=== PATIENT | female | born 1960 | race Caucasian/White ===

== ENCOUNTER 2020-08-12 14:48 | Emergency (ER) | payer OTHER ==
[~2020-08-12] VITALS: Ht 157.5 cm; Wt 113.4 kg
[~2020-08-12 14:48] MED LIST: AUGMENTIN 875875 MG PO; DYAZIDE; GLIPIZIDE; IBUPROFEN 600600 M1 PO; LOSARTAN POTAS100 MG PO; NORCO 5-325 TA1 EACH PO; ONGLYZA5 MG PO; VICODIN 5-5001 EACH PO; Vitamin d; ZOCOR; ZOLOFT; [UNRECOGNIZED DRUG - REMARK]
[2020-08-12] MEDS ORDERED: VITAMIN B-121000 MC2 SUBLING (15:08)
[2020-08-12] MEDS ORDERED: IBUPROFEN 600600 M1 PO ×2 (16:47→17:19)
[2020-08-12] MEDS ORDERED: NORCO5 PO ×2 (16:47→17:19)
[2020-08-12 17:30] VITALS: BP 152/88
== END 2020-08-12 17:32 | disposition home or self-care (01) ==
LOC: M.ERS 14:48
DX: S82.64XA Nondisplaced fracture of lateral malleolus of right fibula, initial encounter for closed fracture (principal); S63.591A Other specified sprain of right wrist, initial encounter; I10 Essential (primary) hypertension; E78.5 Hyperlipidemia, unspecified; E11.9 Type 2 diabetes mellitus without complications; Z91.040 Latex allergy status; W01.0XXA Fall on same level from slipping, tripping and stumbling without subsequent striking against object, initial encounter; Y93.89 Activity, other specified; Y92.89 Other specified places as the place of occurrence of the external cause; Y99.8 Other external cause status